=== PATIENT | female | born 1960 | race Caucasian/White ===

== ENCOUNTER 2017-04-23 20:40 | Emergency (ER) | payer OTHER ==
--- NOTE | 2017-04-24 01:46 | ED CLINICAL REPORT ---
Clinical Report - Physicians/Mid Levels Formerly [facility] [address] [place] [address] 04/23/2017 20:42 Patient: LEE DUVAL Time Seen: 21:04; initial patient contact. Arrived- By private vehicle. Historian- patient. HISTORY OF PRESENT ILLNESS Chief Complaint: BLOOD PRESSURE ELEVATED. Checked by patient and EMS at home and fire department. This started today and is still present but is improving. At its maximum, severity described as moderate. When seen in the E.D., severity described as mild. Modifying factors. Not worsened by anything. Not relieved by anything. No headache, visual disturbance or fatigue. Similar symptoms previously: None. Recent medical care: Not recently seen/assessed. REVIEW OF SYSTEMS No difficulty breathing, chest pain, abdominal pain, nausea or vomiting. No difficulty with urination, headache, blackouts or double vision. She has had dizziness (Now gone). All systems otherwise negative, except as recorded above. PAST HISTORY Hypertension. Dementia. SURGERIES: Cholecystectomy. . Medications: Premarin Oral. Triamterene-HCTZ Oral. Namenda Oral. Wellbutrin Oral. SEROquel Oral. Allergies: None. SOCIAL HISTORY Never smoker. Occasional alcohol use. No drug use. ADDITIONAL NOTES The nursing notes have been reviewed. PHYSICAL EXAM Vital Signs: 04/23/2017 21:02 BP: 171/111. HR: 106. RR: 16. O2 saturation: 100%. Temp: 98.5 F. Pain level now: 0/10. Have been reviewed. Hypertensive. Tachycardic. Respiratory rate normal. Temperature normal. Oxygen saturation normal. Appearance: Alert. No acute distress. Eyes: Eyes normal inspection. ENT: Pharynx normal. Neck: Neck supple. No JVD. CVS: Normal heart rate and rhythm. Heart sounds normal. Respiratory: No respiratory distress. Breath sounds normal. Abdomen: No visible injury. Soft and nontender. Bowel sounds normal. Skin: Skin warm and dry. Normal skin color. No rash. Extremities: No calf tenderness. No lower extremity edema. Neuro: Oriented X 3. No motor deficit. LABS, X-RAYS, AND EKG Laboratory Tests: UA-Culture if indicated: (XAVIER: 04/23/2017 21:55) ( Mscvd 04/23/2017 22:26) Final results Test Result Flag Units (Reference) URINE COLOR STRAW URINE APPEARANCE CLEAR URINE GLUCOSE NEGATIVE (NEGATIVE) URINE BILIRUBIN NEGATIVE (NEGATIVE) URINE KETONE NEGATIVE (NEGATIVE) URINE SPECIFIC GRAVITY 1.010 (1.010-1.030) URINE PH 7.5 (5.0-8.0) URINE PROTEIN NEGATIVE (NEGATIVE) URINE UROBILINOGEN 0.2 EU/dL (0.2-1.0) URINE NITRITE NEGATIVE (NEGATIVE) URINE BLOOD NEGATIVE (NEGATIVE) URINE LEUK ESTERASE NEGATIVE (NEGATIVE) URINE RBC NONE SEEN rbc/hpf (0-1) URINE WBC RARE wbc/hpf (0-1) URINE EPITHELIAL CELLS 0-1 EPI/hpf (0-5) URINE BACTERIA NONE SEEN (NONE SEEN) URINE COMMENT CULT NOT INDICATED URINE CULTURES ARE SET-UP BASED ON THE FOLLOWING CRITERIA:POSITIVE NITRITEPOSITIVE LEUKOCYTE ESTERASEGREATER THAN 10 WHITE BLOOD CELLSMODERATE (2+) OR GREATER BACTERIA CBC w Diff: (XAVIER: 04/23/2017 21:20) ( Mscvd 04/23/2017 22:00) Final results Test Result Flag Units (Reference) WHITE BLOOD COUNT 8.2 K/uL (4.5-11.5) RED BLOOD COUNT 4.88 M/uL (4.00-5.20) HEMOGLOBIN 15.3 gm/dL (12.0-16.0) HEMATOCRIT 45.4 % (36.0-46.0) MEAN CELL VOLUME 93 fL (80-100) MEAN CORPUSCULAR HGB 31 pg (26-34) MEAN CORPUSCULAR HGB CONC 34 g/dL (31-37) RED CELL DISTRIBUTION WIDTH 13.5 % (11.6-14.8) PLATELET COUNT 247 K/uL (150-400) NEUTROPHIL % 65.3 % (50-75) LYMPH % 25.3 % (25-40) MONO % 8.0 % (3-14) EOSINOPHIL % 0.7 % (0-4) BASOPHIL % 0.7 % (0-2) CMP: (XAVIER: 04/23/2017 21:20) ( MsgRcvd 04/23/2017 22:03) Final results Test Result Flag Units (Reference) GLUCOSE 115 H mg/dL (70-110) BUN 18 mg/dL (7-18) CREATININE 1.1 mg/dL (0.6-1.3) Estimated GFR 54.03 mL/min Estimated GFR- >60 mL/min Note: Persistent reduction over 3 months in eGFR<60 mL/min/1.73 m2 defines CKD. Patients with eGFR values>=60 mL/min/1.73 m2 may also have CKD if evidence ofpersistent proteinuria. Additional information may be foundat www.kidney.org. SODIUM 142 mmol/L (136-145) POTASSIUM 3.4 L mmol/L (3.5-5.1) CHLORIDE 103 mmol/L (98-107) CARBON DIOXIDE 26 mmol/L (21-32) CALCIUM 9.2 mg/dL (8.5-10.1) TOTAL PROTEIN 7.6 g/dL (6.4-8.2) ALBUMIN 3.9 g/dL (3.3-5.0) BILIRUBIN, TOTAL 0.4 mg/dL (0.0-1.0) ALKALINE PHOSPHATASE 99 U/L (46-116) AST (SGOT) 23 U/L (15-37) ALT (SGPT) 42 U/L (12-78) . PROGRESS AND PROCEDURES Disposition: Discharged home in good and improved condition. Condition: good. CLINICAL IMPRESSION Essential hypertension. INSTRUCTIONS Your Current Medications: STOP TAKING THE FOLLOWING MEDICATIONS: SEROquel Oral. CONTINUE TAKING THE FOLLOWING MEDICATIONS: Namenda Oral. Premarin Oral. Triamterene-HCTZ Oral. Wellbutrin Oral. Prescription Medications: Amlodipine 5 mg: take 1 orally every 24 hours. Dispense fifteen (15). No refills. Vistaril 50 mg: take 1 orally every 6 hours as needed for anxiety. Dispense thirty (30). No refill. Substitution is permissible. (Or PRN insomnia) Follow-up: Follow up with your doctor in about two days. Call for an appointment. Blood pressure screening was not performed during this visit because the patient has an active diagnosis of hypertension. (Electronically signed by Micheal Gonzalez Dr. 04/24/2017 8:08)
--- NOTE | 2017-04-24 01:46 | ED ORDER SUMMARY ---
..... Patient: LEE DUVAL OrderSheet [facility] VisitID: [id number] [place] [address] 57y, F Registration Date/Time: 04/23/2017 ORDER SHEET Weight: 79.3 kg (stated) Allergies: None GENERAL ORDERS: CBC w Diff Urgent (21:40 04/23/2017 Michela Miles) (21:44 KKnebel R.N.) CMP Urgent (21:40 04/23/2017 Michela Miles) (21:44 KKnebel R.N.) UA-Culture if indicated Urgent (21:40 04/23/2017 Michela Miles) (Ack 21:54 Lara) (22:03 KKnebel R.N.) MEDICATION ORDERS: Amlodipine PO 5 mg (NOW) (00:04 04/24/2017 Michela Miles) (Ack 0:19 KIMBERLEEanders R.N.) (0:38 KIMBERLEEanders R.N.) Vistaril PO 50 mg (NOW) (01:48 04/24/2017 Michela Miles) (Ack 1:53 JSanders R.N.) (1:59 JSanders R.N.) IV FLUIDS: IV Saline Lock (21:40 04/23/2017 Michela Miles) (21:44 KKnebel R.N.) IV NS : initial bolus none -, then 1000 mL/hr for X1 (NOW) (22:32 04/23/2017 Michela Miles) (22:49 KKnebel R.N.) ORDER SHEET NOTES: [Electronically signed by Alison Tran R.N. (05:55 04/24/2017)] [Electronically signed by Micheal Gonzalez Dr. (08:08 04/24/2017)] [Electronically locked/signed by Alison Tran R.N. (05:55 04/24/2017)]
--- NOTE | 2017-04-24 01:46 | ED ORDER SUMMARY ---
..... Patient: LEE DUVAL OrderSheet [facility] VisitID: [id number] [place] [address] 57y, F Registration Date/Time: 04/23/2017 ORDER SHEET Weight: 79.3 kg (stated) Allergies: None GENERAL ORDERS: CBC w Diff Urgent (21:40 04/23/2017 Michela Miles) (21:44 KKnebel R.N.) CMP Urgent (21:40 04/23/2017 Michela Miles) (21:44 KKnebel R.N.) UA-Culture if indicated Urgent (21:40 04/23/2017 Michela Miles) (Ack 21:54 Lara) (22:03 KKnebel R.N.) MEDICATION ORDERS: Amlodipine PO 5 mg (NOW) (00:04 04/24/2017 Michela Miles) (Ack 0:19 KIMBERLEEanders R.N.) (0:38 KIMBERLEEanders R.N.) Vistaril PO 50 mg (NOW) (01:48 04/24/2017 Michela Miles) (Ack 1:53 JSanders R.N.) (1:59 JSanders R.N.) IV FLUIDS: IV Saline Lock (21:40 04/23/2017 Michela Miles) (21:44 KKnebel R.N.) IV NS : initial bolus none -, then 1000 mL/hr for X1 (NOW) (22:32 04/23/2017 Michela Miles) (22:49 KKnebel R.N.) ORDER SHEET NOTES: [Electronically signed by Alison Tran R.N. (05:55 04/24/2017)] [Electronically signed by Micheal Gonzalez Dr. (08:08 04/24/2017)] [Electronically locked/signed by Alison Tran R.N. (05:55 04/24/2017)]
--- NOTE | 2017-04-24 01:46 | ED NURSING NOTES ---
Clinical Report - Nurses [facility] [address] [place] [address] 04/23/2017 20:42 Patient: LEE DUVAL TRIAGE Triage time 21:Apr 23 2017. Acuity: LEVEL 3. Chief Complaint: (hypertension). Alert. No acute distress. KATHY COMA SCORE: Kathy Coma Scale: 14- eyes open spontaneously (4); best verbal response- disoriented (4); best motor response- obeys commands (6). --21:11 Kalani La R.N. 21:02 04/23/17. BP: 171/111. HR: 106. RR: 16. O2 saturation: 100%. Temp: 98.5 F. Pain level now: 0/10. --21:11 Kalani La R.N. Weight: 79.3 kg stated. Height/Length: 61 inches Per Patient. BMI: 33. --21:09 Kalani La R.N. Medications SEROquel Oral. --21:03 Kalani La R.N. Wellbutrin Oral. --21:04 Kalani La R.N. Namenda Oral. --21:04 Kalani La R.N. Triamterene-HCTZ Oral. --21:05 Kalani La R.N. Premarin Oral. --21:07 Kalani La R.N. Allergies None. --21:05 Kalani La R.N. History Arrived by private vehicle. Historian: family. Accompanied by family and spouse. This started today. ( dizzy). Treatment DIRECTOR OF ARCHITECTURE: None. PAST MEDICAL HX: Immunizations: up-to-date. The patient is post-menopausal. Denies current . SOCIAL HX: Never smoker. Occasional alcohol use. No drug use. No infectious disease exposure. SELF HARM ASSESSMENT: A self harm assessment was performed. The patient answered "no" to the question "Do you have thoughts of harming or killing yourself?". FALL RISK ASSESSMENT: Fall risk assessment completed. No fall risk identified. NUTRITIONAL RISK ASSESSMENT: The nutritional risk assessment revealed no deficiencies. FUNCTIONAL ASSESSMENT: Functional assessment: no impairments noted. LEARNING NEEDS ASSESSMENT: The learning needs assessment revealed no barriers. ABUSE ASSESSMENT: Abuse assessment: The patient was asked "Do you feel safe in your home?". SKIN INTEGRITY ASSESSMENT: Skin integrity risk assessment completed. No skin integrity risk identified. --21:11 Kalani La R.N. PROBLEMS: Hypertension. Dementia. --21:06 Kalani La R.N. ADDITIONAL SURGERIES: Cholecystectomy. . --21:06 Kalani La R.N. Interventions ID band on patient. To room. --21:11 Kalani La R.N. PHYSICAL ASSESSMENT GENERAL / NEURO / PSYCH: Alert. Appears in no acute distress. The patient is disoriented to place and time. HEENT: No facial asymmetry noted. RESPIRATORY: Respirations not labored. CVS: Capillary refill less than 2 seconds. GI / : Abdomen soft and nontender. SKIN: Skin is warm and dry. --21:11 Kalani La R.N. NURSING PROGRESS NOTES Pulse oximeter and NIBP monitor placed on patient. Call light placed in reach. Side rails up x 2. Bed placed in lowest position. Brakes of bed on. Brakes of chair on. --21:12 Kalani La R.N. 21:24 04/23/2017 Site #1 started via IV in the right hand with an 20g angiocath, with aseptic technique and good blood return; one attempt. Blood drawn: rainbow set. Labeled in the presence of the patient and sent to the lab. Saline lock flushed with 10 mL saline. --21:24 Kalani La R.N. Patient ID band checked for patient name and birthdate: patient confirmed. Instructions provided to collect clean catch urine. Clean catch urine collected with return of yellow-colored clear urine; sample sent to lab for urinalysis and culture. Specimen labeled in the presence of the patient. --22:02 Kalani La R.N. 22:44 04/23/2017 Started bag #1 1000 mL IV Fluids IV NS (Saline); bolus of 1000 mL over 1 hour(s) via site #1 via IV pump. Allergies verified and confirmed 5 rights. IV patency established. IV site checked: no pain, redness, or swelling. IV flushed thoroughly pre- and post-medication administration. --22:49 Kalani La R.N. The patient is calm and resting quietly. Overall patient status is the same- she states feels better. RESPIRATORY: No respiratory distress. SKIN: Skin is warm and dry. Skin color within normal limits. --23:37 Kalani La R.N. 23:36 04/23/17. BP: 162/98. HR: 114. O2 saturation: 98%. --23:37 Kalani La R.N. Care transferred and report received (YESENIA Uriarte). --23:41 Alison Tran R.N. 23:45 04/23/2017 IV Fluids IV NS Discontinued: bag #1 completed. Total amount infused: 1000 mL. IV patency established. IV site checked: no pain, redness, or swelling. IV flushed thoroughly. --23:45 Alison Tran R.N. 23:46 04/23/17. ( Patient resting, inquiring when she can go home, told her the doctor should be DC her soon. She and states understanding). --23:46 Alison Tran R.N. 23:53 04/23/17. ( Patient up to restroom. Ambulating fine, no dizziness.). --23:53 Alison Tran R.N. 23:58 04/23/17. ( Patient back in room.). --23:58 Alison Tran R.N. 00:29 04/24/17. ( Francis does not have Norvasc or Amlodipine so nursing supp will retrieve.). --00:29 Alison Tran R.N. 00:36 04/24/17. BP: 151/96 (regular adult cuff) taken on the left arm. HR: 93. RR: 16. O2 saturation: 100%. Pain level now: 0/10. --00:37 Alison Tran R.N. 00:38 04/24/2017 Amlodipine PO Tablets 5 mg given. Allergies verified and confirmed 5 rights. --00:38 Alison Tran R.N. 01:06 04/24/17. BP: 152/93 (regular adult cuff) taken on the left arm, while sitting. HR: 95. RR: 16. O2 saturation: 100% on room air. --01:08 Michelle Villaseñor 01:59 04/24/2017 Vistaril (HydrOXYzine Pamoate) PO Capsules 50 mg given. Allergies verified, confirmed 5 rights and sedative warning given to the patient. --01:59 Alison Tran R.N. 01:59 04/24/17. BP: 159/102 (large adult cuff) taken on the right arm, while sitting. HR: 92. RR: 18. O2 saturation: 100%. Pain level now: 0/10. --02:05 Alison Tran R.N. DISPOSITION / DISCHARGE 02:04/24/2017 Site #1 removed upon discharge. Bandaid applied. --02:27 Alison Tran R.N. late entry - 02:20 04/24/17. 02:27 04/24/17. Departure time: 02:Apr 24 2017. Condition at departure: unchanged. No learning barriers present. Discharge instructions provided and reviewed with the spouse. Reviewed medication(s) side effects, precautions, dosing and course information. Prescription(s) given to the patient. Spouse verbalized understanding. Written instructions provided in Arabic. The patient was discharged by the physician. She was discharged home and accompanied by spouse. She left the Emergency Department ambulatory and via private vehicle. Spouse driving. --02:27 Alison Tran R.N. 02:04/24/17. BP: 159/102 (large adult cuff) taken on the right arm. HR: 92. RR: 16. O2 saturation: 100% on room air. Temp: 98.4 F (oral). Pain level now: 0/10. Additional comments: physician notified of DC vitals, ok per Dr Gonzalez. --02:27 Tran, Alison, R.N. Locked/Released at 04/24/2017 5:55 by Alison Tran R.N.
--- NOTE | 2017-04-24 08:09 | ED DISCHARGE INSTRUCTIONS ---
Patient: LEE DUVAL General Instructions [facility] VisitID: [id number] [place] [address] 57y, F Registration Date/Time: 04/23/2017 Essential hypertension. INSTRUCTIONS Your Current Medications: STOP TAKING THE FOLLOWING MEDICATIONS: SEROquel Oral. CONTINUE TAKING THE FOLLOWING MEDICATIONS: Namenda Oral. Premarin Oral. Triamterene-HCTZ Oral. Wellbutrin Oral. Prescription Medications: Amlodipine 5 mg: take 1 orally every 24 hours. Dispense fifteen (15). No refills. Vistaril 50 mg: take 1 orally every 6 hours as needed for anxiety. Dispense thirty (30). No refill. Substitution is permissible. (Or PRN insomnia) Follow-up: Follow up with your doctor in about two days. Call for an appointment. Blood pressure screening was not performed during this visit because the patient has an active diagnosis of hypertension. ADDITIONAL INFORMATION Hypertension, Out Of Control (Established) Your blood pressure was unusually high today. This can occur as a result of missing doses of your blood pressure medicine. Some asthma inhalers, decongestants, diet pills, and street drugs such as cocaine and amphetamine can worsen hypertension. An increase in body weight, increase in salt intake, smoking, and caffeine are other causes. Emotional upset or acute pain can cause a sudden rapid rise in blood pressure which may return to normal after a period of rest. A normal blood pressure is less than 140/90. The first (top) number is the systolic pressure. The second (bottom) number is the diastolic pressure. Hypertension exists when either the top number is 140 or higher, OR the bottom number is 90 or higher on repeated measurements. Home Care: All patients with high blood pressure should do the following to lower their pressure. If you are on blood pressure medicines, then these methods may reduce or eliminate your need for medicines in the future. Begin a weight-loss program if you are overweight. Reduce your salt intake. Avoid high-salt foods (olives, pickles, smoked meats, salted potato chips, etc.). Do not add salt to your food at the table. Use only small amounts of salt when cooking. Begin an exercise program. Discuss with your doctor what type of exercise program would be best for you. It doesnt have to be difficult. Even brisk walking for 20 minutes3 times a week is a good form of exercise. Avoid medicines which contain heart stimulants. This includes many cold and sinus decongestant pills and sprays as well as diet pills. Check the warnings about hypertension on the label. Stimulants such as amphetamine or cocaine could be lethal for someone with hypertension. Never take these. Limit your caffeine intake or switch to decaf. Stop smoking. If you are a long-time smoker, this can be hard. Enroll in a stop-smoking program to improve your chance of success. Talk to your physician about ways to improve your chance of success. Learning how to handle stress better is an important part of any program to lower blood pressure. Learn about relaxation methods such as meditation, yoga, or biofeedback. If medicines were prescribed, take them exactly as directed. Missing doses may cause your blood pressure to get out of control. Consider buying an automatic blood pressure machine (available at many pharmacies). Use this to monitor your blood pressure and report to your doctor. Follow Up: Regular visits to your own doctor for blood pressure checks and medicine adjustment is an important part of your care. Make a follow-up appointment as directed by our staff. Get Prompt Medical Attention if any of the following occur: Chest, arm, shoulder, neck, or upper back pain Shortness of breath Severe headache Throbbing or rushing sound in the ears Nosebleed Extreme drowsiness, confusion, or fainting Dizziness or vertigo (dizziness with spinning sensation) Weakness of an arm or leg or one side of the face Difficulty with speech or vision Amlodipine Besylate Oral tablet What is this medicine? AMLODIPINE (am HECTOR cullen) is a calcium-channel augustin. It affects the amount of calcium found in your heart and muscle cells. This relaxes your blood vessels, which can reduce the amount of work the heart has to do. This medicine is used to lower high blood pressure. It is also used to prevent chest pain. How should I use this medicine? Take this medicine by mouth with a glass of water. Follow the directions on the prescription label. Take your medicine at regular intervals. Do not take more medicine than directed. Talk to your ultrasound technologist sonographer regarding the use of this medicine in children. Special care may be needed. This medicine has been used in children as young as 6. Persons over 65 years old may have a stronger reaction to this medicine and need smaller doses. What side effects may I notice from receiving this medicine? Side effects that you should report to your doctor or health childcare teacher as soon as possible: allergic reactions like skin rash, itching or hives, swelling of the face, lips, or tongue breathing problems changes in vision or hearing chest pain fast, irregular heartbeat swelling of legs or ankles Side effects that usually do not require medical attention (report to your doctor or health childcare teacher if they continue or are bothersome): dry mouth facial flushing nausea, vomiting stomach gas, pain tired, weak trouble sleeping What may interact with this medicine? herbal or dietary supplements local or general anesthetics medicines for high blood pressure medicines for prostate problems rifampin What if I miss a dose? If you miss a dose, take it as soon as you can. If it is almost time for your next dose, take only that dose. Do not take double or extra doses. Where should I keep my medicine? Keep out of the reach of children. Store at room temperature between 59 and 86 degrees F (15 and 30 degrees C). Protect from light. Keep container tightly closed. Throw away any unused medicine after the expiration date. What should I tell my health care provider before I take this medicine? They need to know if you have any of these conditions: heart problems like heart failure or aortic stenosis liver disease an unusual or allergic reaction to amlodipine, other medicines, foods, dyes, or preservatives or trying to get breast-feeding What should I watch for while using this medicine? Visit your doctor or health childcare teacher for regular check ups. Check your blood pressure and pulse rate regularly. Ask your health childcare teacher what your blood pressure and pulse rate should be, and when you should contact him or her. This medicine may make you feel confused, dizzy or lightheaded. Do not drive, use machinery, or do anything that needs mental alertness until you know how this medicine affects you. To reduce the risk of dizzy or fainting spells, do not sit or stand up quickly, especially if you are an older patient. Avoid alcoholic drinks; they can make you more dizzy. Do not suddenly stop taking amlodipine. Ask your doctor or health childcare teacher how you can gradually reduce the dose. Hydroxyzine Pamoate Oral capsule What is this medicine? HYDROXYZINE (janusz DROX i zeen) is an antihistamine. This medicine is used to treat allergy symptoms. It is also used to treat anxiety and tension. This medicine can be used with other medicines to induce sleep before surgery. How should I use this medicine? Take this medicine by mouth with a full glass of water. Follow the directions on the prescription label. You may take this medicine with food or on an empty stomach. Take your medicine at regular intervals. Do not take your medicine more often than directed. Talk to your ultrasound technologist sonographer regarding the use of this medicine in children. Special care may be needed. While this drug may be prescribed for children as young as 6 years of age for selected conditions, precautions do apply. Patients over 65 years old may have a stronger reaction and need a smaller dose. What side effects may I notice from receiving this medicine? Side effects that you should report to your doctor or health childcare teacher as soon as possible: fast or irregular heartbeat difficulty passing urine seizures slurred speech or confusion tremor Side effects that usually do not require medical attention (report to your doctor or health childcare teacher if they continue or are bothersome): constipation drowsiness fatigue headache stomach upset What may interact with this medicine? alcohol barbiturate medicines for sleep or seizures medicines for colds, allergies medicines for depression, anxiety, or emotional disturbances medicines for pain medicines for sleep muscle relaxants What if I miss a dose? If you miss a dose, take it as soon as you can. If it is almost time for your next dose, take only that dose. Do not take double or extra doses. Where should I keep my medicine? Keep out of the reach of children. Store at room temperature between 15 and 30 degrees C (59 and 86 degrees F). Keep container tightly closed. Throw away any unused medicine after the expiration date. What should I tell my health care provider before I take this medicine? They need to know if you have any of these conditions: any chronic illness difficulty passing urine glaucoma heart disease kidney disease liver disease lung disease an unusual or allergic reaction to hydroxyzine, cetirizine, other medicines, foods, dyes, or preservatives or trying to get breast-feeding What should I watch for while using this medicine? Tell your doctor or health childcare teacher if your symptoms do not improve. You may get drowsy or dizzy. Do not drive, use machinery, or do anything that needs mental alertness until you know how this medicine affects you. Do not stand or sit up quickly, especially if you are an older patient. This reduces the risk of dizzy or fainting spells. Alcohol may interfere with the effect of this medicine. Avoid alcoholic drinks. Your mouth may get dry. Chewing sugarless gum or sucking hard candy, and drinking plenty of water may help. Contact your doctor if the problem does not go away or is severe. This medicine may cause dry eyes and blurred vision. If you wear contact lenses you may feel some discomfort. Lubricating drops may help. See your eye doctor if the problem does not go away or is severe. If you are receiving skin tests for allergies, tell your doctor you are using this medicine. You have been given the following additional information: Hypertension, Established, Out Of Control Amlodipine Besylate Oral tablet Hydroxyzine Pamoate Oral capsule (Electronically signed by Micheal Gonzalez Dr. 04/24/2017 8:08)
--- NOTE | 2017-04-24 08:09 | ED MAR SUMMARY ---
..... Medication Administration Record [facility] [address] [place] [address] Patient: LEE DUVAL Visit ID: [id number] 57y, F Weight: 79.3 kg Height/Length: 61 in BMI: 33 ALLERGIES: None Start 22:44 04/23/2017 Kalani La R.N., Stop 23:45 04/23/2017 Alison Tran R.N. Medication Administered: IV NS (SALINE), Dose: IV Fluids, Bolus: 1000 mL over 1 hour(s), Dispensed: 1000 mL bag, Site: #1 right hand. Medication Ordered: IV NS : initial bolus none -, then 1000 mL/hr for X1 (NOW). Given 00:38 04/24/2017 Alison Tran R.N. Medication Administered: AMLODIPINE [PO], Dose: 5 mg Tablets PO. Medication Ordered: Amlodipine PO 5 mg (NOW). Given 01:59 04/24/2017 Alison Tran R.N. Medication Administered: VISTARIL [PO] (HYDROXYZINE PAMOATE), Dose: 50 mg Capsules PO. Medication Ordered: Vistaril PO 50 mg (NOW).
--- NOTE | 2017-04-24 08:09 | ED DISCHARGE INSTRUCTIONS ---
Patient: LEE DUVAL General Instructions [facility] VisitID: [id number] [place] [address] 57y, F Registration Date/Time: 04/23/2017 Essential hypertension. INSTRUCTIONS Your Current Medications: STOP TAKING THE FOLLOWING MEDICATIONS: SEROquel Oral. CONTINUE TAKING THE FOLLOWING MEDICATIONS: Namenda Oral. Premarin Oral. Triamterene-HCTZ Oral. Wellbutrin Oral. Prescription Medications: Amlodipine 5 mg: take 1 orally every 24 hours. Dispense fifteen (15). No refills. Vistaril 50 mg: take 1 orally every 6 hours as needed for anxiety. Dispense thirty (30). No refill. Substitution is permissible. (Or PRN insomnia) Follow-up: Follow up with your doctor in about two days. Call for an appointment. Blood pressure screening was not performed during this visit because the patient has an active diagnosis of hypertension. ADDITIONAL INFORMATION Hypertension, Out Of Control (Established) Your blood pressure was unusually high today. This can occur as a result of missing doses of your blood pressure medicine. Some asthma inhalers, decongestants, diet pills, and street drugs such as cocaine and amphetamine can worsen hypertension. An increase in body weight, increase in salt intake, smoking, and caffeine are other causes. Emotional upset or acute pain can cause a sudden rapid rise in blood pressure which may return to normal after a period of rest. A normal blood pressure is less than 140/90. The first (top) number is the systolic pressure. The second (bottom) number is the diastolic pressure. Hypertension exists when either the top number is 140 or higher, OR the bottom number is 90 or higher on repeated measurements. Home Care: All patients with high blood pressure should do the following to lower their pressure. If you are on blood pressure medicines, then these methods may reduce or eliminate your need for medicines in the future. Begin a weight-loss program if you are overweight. Reduce your salt intake. Avoid high-salt foods (olives, pickles, smoked meats, salted potato chips, etc.). Do not add salt to your food at the table. Use only small amounts of salt when cooking. Begin an exercise program. Discuss with your doctor what type of exercise program would be best for you. It doesnt have to be difficult. Even brisk walking for 20 minutes3 times a week is a good form of exercise. Avoid medicines which contain heart stimulants. This includes many cold and sinus decongestant pills and sprays as well as diet pills. Check the warnings about hypertension on the label. Stimulants such as amphetamine or cocaine could be lethal for someone with hypertension. Never take these. Limit your caffeine intake or switch to decaf. Stop smoking. If you are a long-time smoker, this can be hard. Enroll in a stop-smoking program to improve your chance of success. Talk to your physician about ways to improve your chance of success. Learning how to handle stress better is an important part of any program to lower blood pressure. Learn about relaxation methods such as meditation, yoga, or biofeedback. If medicines were prescribed, take them exactly as directed. Missing doses may cause your blood pressure to get out of control. Consider buying an automatic blood pressure machine (available at many pharmacies). Use this to monitor your blood pressure and report to your doctor. Follow Up: Regular visits to your own doctor for blood pressure checks and medicine adjustment is an important part of your care. Make a follow-up appointment as directed by our staff. Get Prompt Medical Attention if any of the following occur: Chest, arm, shoulder, neck, or upper back pain Shortness of breath Severe headache Throbbing or rushing sound in the ears Nosebleed Extreme drowsiness, confusion, or fainting Dizziness or vertigo (dizziness with spinning sensation) Weakness of an arm or leg or one side of the face Difficulty with speech or vision Amlodipine Besylate Oral tablet What is this medicine? AMLODIPINE (am HECTOR cullen) is a calcium-channel augustin. It affects the amount of calcium found in your heart and muscle cells. This relaxes your blood vessels, which can reduce the amount of work the heart has to do. This medicine is used to lower high blood pressure. It is also used to prevent chest pain. How should I use this medicine? Take this medicine by mouth with a glass of water. Follow the directions on the prescription label. Take your medicine at regular intervals. Do not take more medicine than directed. Talk to your corrections cadet regarding the use of this medicine in children. Special care may be needed. This medicine has been used in children as young as 6. Persons over 65 years old may have a stronger reaction to this medicine and need smaller doses. What side effects may I notice from receiving this medicine? Side effects that you should report to your doctor or health direct care professional as soon as possible: allergic reactions like skin rash, itching or hives, swelling of the face, lips, or tongue breathing problems changes in vision or hearing chest pain fast, irregular heartbeat swelling of legs or ankles Side effects that usually do not require medical attention (report to your doctor or health direct care professional if they continue or are bothersome): dry mouth facial flushing nausea, vomiting stomach gas, pain tired, weak trouble sleeping What may interact with this medicine? herbal or dietary supplements local or general anesthetics medicines for high blood pressure medicines for prostate problems rifampin What if I miss a dose? If you miss a dose, take it as soon as you can. If it is almost time for your next dose, take only that dose. Do not take double or extra doses. Where should I keep my medicine? Keep out of the reach of children. Store at room temperature between 59 and 86 degrees F (15 and 30 degrees C). Protect from light. Keep container tightly closed. Throw away any unused medicine after the expiration date. What should I tell my health care provider before I take this medicine? They need to know if you have any of these conditions: heart problems like heart failure or aortic stenosis liver disease an unusual or allergic reaction to amlodipine, other medicines, foods, dyes, or preservatives or trying to get breast-feeding What should I watch for while using this medicine? Visit your doctor or health direct care professional for regular check ups. Check your blood pressure and pulse rate regularly. Ask your health direct care professional what your blood pressure and pulse rate should be, and when you should contact him or her. This medicine may make you feel confused, dizzy or lightheaded. Do not drive, use machinery, or do anything that needs mental alertness until you know how this medicine affects you. To reduce the risk of dizzy or fainting spells, do not sit or stand up quickly, especially if you are an older patient. Avoid alcoholic drinks; they can make you more dizzy. Do not suddenly stop taking amlodipine. Ask your doctor or health direct care professional how you can gradually reduce the dose. Hydroxyzine Pamoate Oral capsule What is this medicine? HYDROXYZINE (janusz DROX i zeen) is an antihistamine. This medicine is used to treat allergy symptoms. It is also used to treat anxiety and tension. This medicine can be used with other medicines to induce sleep before surgery. How should I use this medicine? Take this medicine by mouth with a full glass of water. Follow the directions on the prescription label. You may take this medicine with food or on an empty stomach. Take your medicine at regular intervals. Do not take your medicine more often than directed. Talk to your corrections cadet regarding the use of this medicine in children. Special care may be needed. While this drug may be prescribed for children as young as 6 years of age for selected conditions, precautions do apply. Patients over 65 years old may have a stronger reaction and need a smaller dose. What side effects may I notice from receiving this medicine? Side effects that you should report to your doctor or health direct care professional as soon as possible: fast or irregular heartbeat difficulty passing urine seizures slurred speech or confusion tremor Side effects that usually do not require medical attention (report to your doctor or health direct care professional if they continue or are bothersome): constipation drowsiness fatigue headache stomach upset What may interact with this medicine? alcohol barbiturate medicines for sleep or seizures medicines for colds, allergies medicines for depression, anxiety, or emotional disturbances medicines for pain medicines for sleep muscle relaxants What if I miss a dose? If you miss a dose, take it as soon as you can. If it is almost time for your next dose, take only that dose. Do not take double or extra doses. Where should I keep my medicine? Keep out of the reach of children. Store at room temperature between 15 and 30 degrees C (59 and 86 degrees F). Keep container tightly closed. Throw away any unused medicine after the expiration date. What should I tell my health care provider before I take this medicine? They need to know if you have any of these conditions: any chronic illness difficulty passing urine glaucoma heart disease kidney disease liver disease lung disease an unusual or allergic reaction to hydroxyzine, cetirizine, other medicines, foods, dyes, or preservatives or trying to get breast-feeding What should I watch for while using this medicine? Tell your doctor or health direct care professional if your symptoms do not improve. You may get drowsy or dizzy. Do not drive, use machinery, or do anything that needs mental alertness until you know how this medicine affects you. Do not stand or sit up quickly, especially if you are an older patient. This reduces the risk of dizzy or fainting spells. Alcohol may interfere with the effect of this medicine. Avoid alcoholic drinks. Your mouth may get dry. Chewing sugarless gum or sucking hard candy, and drinking plenty of water may help. Contact your doctor if the problem does not go away or is severe. This medicine may cause dry eyes and blurred vision. If you wear contact lenses you may feel some discomfort. Lubricating drops may help. See your eye doctor if the problem does not go away or is severe. If you are receiving skin tests for allergies, tell your doctor you are using this medicine. You have been given the following additional information: Hypertension, Established, Out Of Control Amlodipine Besylate Oral tablet Hydroxyzine Pamoate Oral capsule (Electronically signed by Micheal Gonzalez Dr. 04/24/2017 8:08)
--- NOTE | 2017-04-24 08:09 | ED MED RECONCILIATION SUMMARY ---
Patient: LEE DUVAL Medication Reconciliation Report [facility] VisitID: [id number] [address] [place] [address] 57y, F Registration Date/Time: 04/23/2017 Weight: 79.3 kg Height/Length: 61 in. BMI: 33.0 ALLERGIES: None The patient's Home Medications are listed below: STOP TAKING THE FOLLOWING MEDICATIONS: SEROquel Oral CONTINUE TAKING THE FOLLOWING MEDICATIONS: Namenda Oral Premarin Oral Triamterene-HCTZ Oral Wellbutrin Oral The source(s) of the original Home Medication information: Not obtained. The following Medications were given to the patient in the Emergency Department: IV NS IV Fluids bolus 1000 mL over 1 hour(s), administered: 04/23/2017 10:44:00 PM Amlodipine [PO] PO 5 mg, administered: 04/24/2017 12:38:00 AM Vistaril [PO] PO 50 mg, administered: 04/24/2017 1:59:00 AM The following Medications were prescribed to the patient: Amlodipine 5 mg: take 1 orally every 24 hours. Dispense fifteen (15). No refills. -- Micheal Gonzalez Dr. Vistaril 50 mg: take 1 orally every 6 hours as needed for anxiety. Dispense thirty (30). No refill. Substitution is permissible.(Or PRN insomnia) -- Micheal Gonzalez Dr.
--- NOTE | 2017-04-24 08:09 | ED MED RECONCILIATION SUMMARY ---
Patient: LEE DUVAL Medication Reconciliation Report [facility] VisitID: [id number] [address] [place] [address] 57y, F Registration Date/Time: 04/23/2017 Weight: 79.3 kg Height/Length: 61 in. BMI: 33.0 ALLERGIES: None The patient's Home Medications are listed below: STOP TAKING THE FOLLOWING MEDICATIONS: SEROquel Oral CONTINUE TAKING THE FOLLOWING MEDICATIONS: Namenda Oral Premarin Oral Triamterene-HCTZ Oral Wellbutrin Oral The source(s) of the original Home Medication information: Not obtained. The following Medications were given to the patient in the Emergency Department: IV NS IV Fluids bolus 1000 mL over 1 hour(s), administered: 04/23/2017 10:44:00 PM Amlodipine [PO] PO 5 mg, administered: 04/24/2017 12:38:00 AM Vistaril [PO] PO 50 mg, administered: 04/24/2017 1:59:00 AM The following Medications were prescribed to the patient: Amlodipine 5 mg: take 1 orally every 24 hours. Dispense fifteen (15). No refills. -- Micheal Gonzalez Dr. Vistaril 50 mg: take 1 orally every 6 hours as needed for anxiety. Dispense thirty (30). No refill. Substitution is permissible.(Or PRN insomnia) -- Micheal Gonzalez Dr.
--- NOTE | 2017-04-24 08:09 | ED MAR SUMMARY ---
..... Medication Administration Record [facility] [address] [place] [address] Patient: LEE DUVAL Visit ID: [id number] 57y, F Weight: 79.3 kg Height/Length: 61 in BMI: 33 ALLERGIES: None Start 22:44 04/23/2017 Kalani La R.N., Stop 23:45 04/23/2017 Alison Tran R.N. Medication Administered: IV NS (SALINE), Dose: IV Fluids, Bolus: 1000 mL over 1 hour(s), Dispensed: 1000 mL bag, Site: #1 right hand. Medication Ordered: IV NS : initial bolus none -, then 1000 mL/hr for X1 (NOW). Given 00:38 04/24/2017 Alison Tran R.N. Medication Administered: AMLODIPINE [PO], Dose: 5 mg Tablets PO. Medication Ordered: Amlodipine PO 5 mg (NOW). Given 01:59 04/24/2017 Alison Tran R.N. Medication Administered: VISTARIL [PO] (HYDROXYZINE PAMOATE), Dose: 50 mg Capsules PO. Medication Ordered: Vistaril PO 50 mg (NOW).
== END 2017-04-24 02:25 | disposition home or self-care (01) ==
LOC: ED SRH 20:40
DX: I10 Essential (primary) hypertension (principal)
CPT/HCPCS: 90004; 90100; 95059

== ENCOUNTER 2017-04-26 07:45 | Emergency (ER) | payer OTHER ==
--- NOTE | 2017-04-26 08:49 | DIAGNOSTIC IMAGING REPORT ---
PROCEDURE: XR CHEST 1 VIEW INDICATION: CHEST PAIN TECHNIQUE: Portable AP view 08:33 a.m. COMPARISON: None. FINDINGS: Lungs are clear. Heart and mediastinum are normal. Thorax is normal. IMPRESSION: 1. Negative chest.
--- NOTE | 2017-04-26 09:15 | ED CLINICAL REPORT ---
Clinical Report - Physicians/Mid Levels [facility] [address] [place] [address] 04/26/2017 7:50 Patient: LEE DUVAL Time Seen: 07:55. Arrived- By private vehicle. Historian- patient. HISTORY OF PRESENT ILLNESS Chief Complaint: CHEST DISCOMFORT. This started about 1 hour ago and is now gone. Onset during light activity. At its maximum, severity described as moderate. When seen in the E.D., it was gone. Modifying factors. Not worsened by anything. Not relieved by anything. It is described as Pt could not articulate exactly what she was feeling, secondary to dementia. states she looked uncomfortable, and put her hand on her chest. Episode lasted a few minutes. and it is described as located in the central chest area. No nausea, vomiting, difficulty breathing or diaphoresis. Similar symptoms previously: None. Recent medical care: Not recently seen/assessed. REVIEW OF SYSTEMS No fever, chills, cough, pedal edema or calf pain. No fainting episodes, headache, sore throat, blurred vision or abdominal pain. No black stools, difficulty with urination, skin rash, enlarged lymph nodes or joint pain. No bloody stools. All systems otherwise negative, except as recorded above. PAST HISTORY Problems: Murmur. Hypertension. Dementia. Additional Surgeries: Cholecystectomy. . Medications: BuPROPion HCl Oral 150 mg, daily. Memantine HCl Oral (Tablet 10 mg) 1 tablet, 2x daily. AmLODIPine Besylate Oral 5 mg, daily. HydrOXYzine HCl Oral 50 mg, 4x a day as needed. Tamsulosin HCl Oral (Capsule 0.4 mg) 1 capsule, daily. Namenda Oral. Premarin Oral. SEROquel Oral. Triamterene-HCTZ Oral (Tablet 37.5-25 mg) 1 tablet, daily. Wellbutrin Oral. Allergies: None. SOCIAL HISTORY Never smoker. No alcohol use or drug use. ADDITIONAL NOTES The nursing notes have been reviewed. PHYSICAL EXAM Vital Signs: 04/26/2017 07:55 BP: 178/103. HR: 119. RR: 16. O2 saturation: 97%. Temp: 99.5 F. Pain level now: 0/10. Have been reviewed. Appearance: Alert. No acute distress. Eyes: Pupils equal, round and reactive to light. Eyes normal inspection. ENT: Nose normal. Neck: Normal inspection. CVS: Normal heart rate and rhythm. Heart sounds normal. Pulses normal. Respiratory: No respiratory distress. Breath sounds normal. Chest nontender. Abdomen: Soft and nontender. Back: Normal external inspection. Skin: Skin warm and dry. Normal skin color. No rash. Normal skin turgor. Extremities: Extremities exhibit normal ROM. No lower extremity edema. Neuro: (PT is alert and can answer simple questions, but mostly states, "I don't know."). LABS, X-RAYS, AND EKG Chest X-ray: No acute disease. Normal lung markings present. Normal heart size. Mediastinum normal. Great vessels normal. Soft tissues normal. No infiltrate. No fracture. No bony lesion present. Views: AP (portable). Technique: good. The X-rays were independently viewed by me, interpreted by the radiologist and contemporaneously by me and discussed with the radiologist. Prior films were not available for comparison. Laboratory Tests: CBC w Diff: (XAVIER: 04/26/2017 08:04) ( MsgRcvd 04/26/2017 08:28) Final results Test Result Flag Units (Reference) WHITE BLOOD COUNT 5.7 K/uL (4.5-11.5) RED BLOOD COUNT 4.81 M/uL (4.00-5.20) HEMOGLOBIN 15.2 gm/dL (12.0-16.0) HEMATOCRIT 44.9 % (36.0-46.0) MEAN CELL VOLUME 93 fL (80-100) MEAN CORPUSCULAR HGB 32 pg (26-34) MEAN CORPUSCULAR HGB CONC 34 g/dL (31-37) RED CELL DISTRIBUTION WIDTH 13.3 % (11.6-14.8) PLATELET COUNT 208 K/uL (150-400) NEUTROPHIL % 55.1 % (50-75) LYMPH % 33.3 % (25-40) MONO % 8.8 % (3-14) EOSINOPHIL % 2.1 % (0-4) BASOPHIL % 0.7 % (0-2) CHEM 13 PANEL: (XAVIER: 04/26/2017 08:04) ( MsgRcvd 04/26/2017 08:45) Final results Test Result Flag Units (Reference) GLUCOSE 144 H mg/dL (70-110) BUN 13 mg/dL (7-18) CREATININE 1.2 mg/dL (0.6-1.3) Estimated GFR 48.87 mL/min Estimated GFR- 59.23 mL/min Note: Persistent reduction over 3 months in eGFR<60 mL/min/1.73 m2 defines CKD. Patients with eGFR values>=60 mL/min/1.73 m2 may also have CKD if evidence ofpersistent proteinuria. Additional information may be foundat www.kidney.org. SODIUM 140 mmol/L (136-145) POTASSIUM 3.0 L mmol/L (3.5-5.1) CHLORIDE 101 mmol/L (98-107) CARBON DIOXIDE 27 mmol/L (21-32) CALCIUM 9.1 mg/dL (8.5-10.1) TOTAL PROTEIN 7.4 g/dL (6.4-8.2) ALBUMIN 3.9 g/dL (3.3-5.0) BILIRUBIN, TOTAL 0.6 mg/dL (0.0-1.0) ALKALINE PHOSPHATASE 89 U/L (46-116) AST (SGOT) 31 U/L (15-37) ALT (SGPT) 55 U/L (12-78) MAGNESIUM 2.0 mg/dL (1.8-2.4) CPK 92 U/L (24-260) TROPONIN I <0.05 ng/mL (0.00-1.5) TROPONIN REFERENCE RANGE:<0.1 NEGATIVE0.1-1.5 INDETERMINANT>1.5 POSITIVE . Pulse Oximetry: 04/26/2017 07:55 O2 saturation: 97%. (FIO2 - room air). Interpretation: normal. PROGRESS AND PROCEDURES Course of Care: D/w , who gave most of the history: given the pt's limited memory and comprehension, it is very difficult to know what may have happened, and what exactly she was feeling at the time. Pt was worked up for her episode, and work-up was negative. Patient and spouse counseled in person regarding the patient's stable condition, test results, diagnosis and need for follow-up. Concerns were addressed. Old medical records reviewed. Disposition: Discharged. Condition: stable. CLINICAL IMPRESSION Chest pain characterized as "discomfort" .12 lead EKG performed. Hypokalemia INSTRUCTIONS Warnings: GENERAL WARNINGS: Return or contact your physician immediately if your condition worsens or changes unexpectedly, if not improving as expected, or if other problems arise. Your Current Medications: CONTINUE TAKING THE FOLLOWING MEDICATIONS: AmLODIPine Besylate Oral : 5 mg daily. BuPROPion HCl Oral : 150 mg daily. HydrOXYzine HCl Oral : 50 mg 4x a day, prn. Memantine HCl Oral : Tablet 10 mg, 1 tablet 2x daily. Namenda Oral. Premarin Oral. SEROquel Oral. Tamsulosin HCl Oral : Capsule 0.4 mg, 1 capsule daily. Triamterene-HCTZ Oral : Tablet 37.5-25 mg, 1 tablet daily. Wellbutrin Oral. Prescription Medications: K-Dur 20 mEq: take 1 orally every 24 hours. Dispense fifteen (15). No refills. Substitution is permissible. Follow-up: Follow up with your doctor. Call for the next available appointment. Reason for referral: Follow up ER visit for chest discomfort and low potassium. Understanding of the discharge instructions verbalized by patient and family. (Electronically signed by Mare Paz MD 05/08/2017 13:03)
--- NOTE | 2017-04-26 09:15 | ED ORDER SUMMARY ---
..... Patient: LEE DUVAL OrderSheet [facility] VisitID: [id number] [place] [address] 57y, F Registration Date/Time: 04/26/2017 ORDER SHEET Weight: 78.0 kg (measured) Allergies: None GENERAL ORDERS: Chest 1V Urgent (08:19 04/26/2017 Dax R.N. verbal order read back to Moon CANTU) (Ack 8:25 KHoerner) (8:30 KHoerner) Sweet Potato Disintegrator (Continuous) (Chest pain) (08:20 04/26/2017 Dax R.N. verbal order read back to Moon CANTU) (8:20 Fideliaelli R.N.) Cardiac Panel Stat (08:20 04/26/2017 Dax R.N. verbal order read back to Moon CANTU) (8:20 Fideliaelli R.N.) Pulse oximeter (08:20 04/26/2017 Dax R.N. verbal order read back to Moon CANTU) (8:20 JRomanelli R.N.) EKG - ER Stat (08:20 04/26/2017 Dax R.N. verbal order read back to Moon CANTU) (8:21 JRomanelli R.N.) MEDICATION ORDERS: KCl PO 40 meq (NOW) (09:12 04/26/2017 Moon CANTU) (10:11 omanelli R.N.) IV FLUIDS: IV Saline Lock (08:17 04/26/2017 Dax R.N. verbal order read back to Moon CANTU) (8:23 omanelli R.N.) IV Saline Lock (08:20 04/26/2017 Dax R.N. verbal order read back to Moon CANTU) (8:24 Fideliaelli R.N.) ORDER SHEET NOTES: [Electronically signed by Romero Mireles R.N. (11:51 04/26/2017)] [Electronically signed by Mare Paz MD (13:03 05/08/2017)] [Electronically locked/signed by Romero Mireles R.N. (11:51 04/26/2017)]
--- NOTE | 2017-04-26 09:15 | ED NURSING NOTES ---
Clinical Report - Nurses [facility] [address] [place] [address] 04/26/2017 7:50 Patient: LEE DUVAL TRIAGE Triage time 07:50 Apr 26 2017. Acuity: LEVEL 3. Chief Complaint: CHEST PAIN. Alert. KATHY COMA SCORE: Kathy Coma Scale: 14- eyes open spontaneously (4); best verbal response- disoriented (4); best motor response- obeys commands (6). --08:10 Romero Mireles R.N. 07:55 04/26/17. BP: 178/103. HR: 119. RR: 16. O2 saturation: 97%. Temp: 99.5 F. Pain level now: 0/10. --08:10 Romero Mireles R.N. Weight: 78 kg measured. Height/Length: 62 inches Estimated. BMI: 31.5. --07:59 Romero Mireles R.N. Medications Namenda Oral. Premarin Oral. SEROquel Oral. Triamterene-HCTZ Oral (Tablet 37.5-25 mg) 1 tablet, daily. Wellbutrin Oral. --08:03 Romero Mireles R.N. Tamsulosin HCl Oral (Capsule 0.4 mg) 1 capsule, daily. --08:04 Romero Mireles R.N. HydrOXYzine HCl Oral 50 mg, 4x a day as needed. --08:05 Romero Mireles R.N. AmLODIPine Besylate Oral 5 mg, daily. --08:07 Romero Mireles R.N. Memantine HCl Oral (Tablet 10 mg) 1 tablet, 2x daily. --08:07 Romero Mireles R.N. BuPROPion HCl Oral 150 mg, daily. --08:08 Romero Mireles R.N. Allergies None. --08:03 Romero Mireles R.N. History Arrived by private vehicle. Historian: spouse and patient. Accompanied by spouse. ( Chest Pain starting about 1 hour ago, but none now.). This started just prior to arrival and today. Onset. (about 1 hour ago). Treatment COMPUTER PROGRAMMER CHIEF: None. PAST MEDICAL HX: Immunizations: up-to-date. SOCIAL HX: Former smoker, end date 1980. No alcohol use or drug use. No infectious disease exposure. ABUSE ASSESSMENT: No report of abuse. FALL RISK ASSESSMENT: Fall risk assessment completed. No fall risk identified. NUTRITIONAL RISK ASSESSMENT: The nutritional risk assessment revealed no deficiencies. FUNCTIONAL ASSESSMENT: Functional assessment: no impairments noted. LEARNING NEEDS ASSESSMENT: The learning needs assessment revealed no barriers. SKIN INTEGRITY ASSESSMENT: Skin integrity risk assessment completed. No skin integrity risk identified. --08:10 Romero Mireles R.N. PROBLEMS: Hypertension. Dementia. --08:00 Romero Mireles R.N. Murmur. --08:08 Romero Mireles R.N. ADDITIONAL SURGERIES: Cholecystectomy. . --08:00 Romero Mireles R.N. Interventions ID band on patient. To treatment room. --08:10 Romero Mireles R.N. PHYSICAL ASSESSMENT To room via wheelchair. GENERAL / NEURO / PSYCH: Alert. The patient is disoriented to time and situation. HEENT: Mucous membranes are pink. RESPIRATORY: Respirations not labored. Breath sounds within normal limits. CVS: Cardiac rhythm: sinus tachycardia. Heart sounds within normal limits. Pulses within normal limits. Capillary refill less than 2 seconds. GI / : Abdomen soft and nontender. EXTREMITIES: No lower extremity edema. SKIN: Skin is warm and dry. Normal skin turgor. --08:16 Romero Mireles R.N. NURSING PROGRESS NOTES monitoring engineer, pulse oximeter and NIBP monitor placed on patient; child monitor- Lead II and V1; monitor alarms on. Patient gowned. Reassurance given. Patient identifiers checked. Call light placed in reach. Side rails up x 1. Bed placed in lowest position. Brakes of bed on. Patient ready for evaluation- chart flagged and ED physician notified. --08:17 Romero Mireles R.N. 08:00 04/26/2017 Site #1 started via IV in the right antecubital space with an 20g angiocath; one attempt. Saline lock flushed with 10 mL saline. --08:23 Romero Mireles R.N. 08:02 04/26/2017 Site #2 started via IV in the left forearm with an 20g angiocath, with aseptic technique and good blood return; one attempt. Blood drawn: rainbow set. Labeled in the presence of the patient and sent to the lab. Saline lock flushed with 10 mL saline (start by YESENIA Xiong). --08:24 Romero Mireles R.N. EKG time: (758). EKG was ordered, performed by a tech and shown to the ED physician. --08:47 Niki Adames 10:01 04/26/2017 KCL (Potassium Chloride ER) PO Tablets 40 meq given. Allergies verified and confirmed 5 rights. --10:11 Romero Mireles R.N. 08:30 04/26/17. BP: 139/80. HR: 103. RR: 16. O2 saturation: 97% on room air. Pain level now: 0/10. --10:31 Romero Mireles R.N. 09:00 04/26/17. BP: 145/84. HR: 96. RR: 15. O2 saturation: 97% on room air. Pain level now: 0/10. --10:33 Romero Mireles R.N. DISPOSITION / DISCHARGE 09:55 04/26/2017 Site #1 removed upon discharge. Catheter intact. Manual pressure and pressure dressing applied. --10:20 Patricia Rahman R.N. 09:55 04/26/2017 Site #2 removed upon discharge. Catheter intact. Manual pressure and pressure dressing applied. --10:21 Patricia Rahman R.N. 09:55 04/26/17. BP: 145/86. HR: 106. RR: 16. O2 saturation: 97% on room air. Temp: 98.3 F. Pain level now: 0/10. --10:35 Romero Mireles R.N. Departure time: 1000. --11:40 Romero Mireles R.N. 10:00. Condition at departure: improved. No learning barriers present. Discharge instructions provided and reviewed with the patient. Reviewed medication(s) (prescription given to spouse). Reviewed referral to family practice. Patient verbalized understanding. Written instructions provided in Somali. The patient was discharged by the physician. She was discharged home and accompanied by spouse. She left the Emergency Department ambulatory and via private vehicle. Spouse driving. --11:44 Romero Mireles R.N. Locked/Released at 04/26/2017 11:51 by Romero Mireles R.N.
--- NOTE | 2017-04-26 09:15 | ED NURSING NOTES ---
Clinical Report - Nurses [facility] [address] [place] [address] 04/26/2017 7:50 Patient: LEE DUVAL TRIAGE Triage time 07:50 Apr 26 2017. Acuity: LEVEL 3. Chief Complaint: CHEST PAIN. Alert. KATHY COMA SCORE: Kathy Coma Scale: 14- eyes open spontaneously (4); best verbal response- disoriented (4); best motor response- obeys commands (6). --08:10 Romero Mireles R.N. 07:55 04/26/17. BP: 178/103. HR: 119. RR: 16. O2 saturation: 97%. Temp: 99.5 F. Pain level now: 0/10. --08:10 Romero Mireles R.N. Weight: 78 kg measured. Height/Length: 62 inches Estimated. BMI: 31.5. --07:59 Romero Mireles R.N. Medications Namenda Oral. Premarin Oral. SEROquel Oral. Triamterene-HCTZ Oral (Tablet 37.5-25 mg) 1 tablet, daily. Wellbutrin Oral. --08:03 Romero Mireles R.N. Tamsulosin HCl Oral (Capsule 0.4 mg) 1 capsule, daily. --08:04 Romero Mireles R.N. HydrOXYzine HCl Oral 50 mg, 4x a day as needed. --08:05 Romero Mireles R.N. AmLODIPine Besylate Oral 5 mg, daily. --08:07 Romero Mireles R.N. Memantine HCl Oral (Tablet 10 mg) 1 tablet, 2x daily. --08:07 Romero Mireles R.N. BuPROPion HCl Oral 150 mg, daily. --08:08 Romero Mireles R.N. Allergies None. --08:03 Romero Mireles R.N. History Arrived by private vehicle. Historian: spouse and patient. Accompanied by spouse. ( Chest Pain starting about 1 hour ago, but none now.). This started just prior to arrival and today. Onset. (about 1 hour ago). Treatment MANAGER OF IT: None. PAST MEDICAL HX: Immunizations: up-to-date. SOCIAL HX: Former smoker, end date 1980. No alcohol use or drug use. No infectious disease exposure. ABUSE ASSESSMENT: No report of abuse. FALL RISK ASSESSMENT: Fall risk assessment completed. No fall risk identified. NUTRITIONAL RISK ASSESSMENT: The nutritional risk assessment revealed no deficiencies. FUNCTIONAL ASSESSMENT: Functional assessment: no impairments noted. LEARNING NEEDS ASSESSMENT: The learning needs assessment revealed no barriers. SKIN INTEGRITY ASSESSMENT: Skin integrity risk assessment completed. No skin integrity risk identified. --08:10 Romero Mireles R.N. PROBLEMS: Hypertension. Dementia. --08:00 Romero Mireles R.N. Murmur. --08:08 Romero Mireles R.N. ADDITIONAL SURGERIES: Cholecystectomy. . --08:00 Romero Mireles R.N. Interventions ID band on patient. To treatment room. --08:10 Romero Mireles R.N. PHYSICAL ASSESSMENT To room via wheelchair. GENERAL / NEURO / PSYCH: Alert. The patient is disoriented to time and situation. HEENT: Mucous membranes are pink. RESPIRATORY: Respirations not labored. Breath sounds within normal limits. CVS: Cardiac rhythm: sinus tachycardia. Heart sounds within normal limits. Pulses within normal limits. Capillary refill less than 2 seconds. GI / : Abdomen soft and nontender. EXTREMITIES: No lower extremity edema. SKIN: Skin is warm and dry. Normal skin turgor. --08:16 Romero Mireles R.N. NURSING PROGRESS NOTES monitor car operator, pulse oximeter and NIBP monitor placed on patient; monitor technician- Lead II and V1; monitor alarms on. Patient gowned. Reassurance given. Patient identifiers checked. Call light placed in reach. Side rails up x 1. Bed placed in lowest position. Brakes of bed on. Patient ready for evaluation- chart flagged and ED physician notified. --08:17 Romero Mireles R.N. 08:00 04/26/2017 Site #1 started via IV in the right antecubital space with an 20g angiocath; one attempt. Saline lock flushed with 10 mL saline. --08:23 Romero Mireles R.N. 08:02 04/26/2017 Site #2 started via IV in the left forearm with an 20g angiocath, with aseptic technique and good blood return; one attempt. Blood drawn: rainbow set. Labeled in the presence of the patient and sent to the lab. Saline lock flushed with 10 mL saline (start by YESENIA Xiong). --08:24 Romero Mireles R.N. EKG time: (758). EKG was ordered, performed by a tech and shown to the ED physician. --08:47 Niki Adames 10:01 04/26/2017 KCL (Potassium Chloride ER) PO Tablets 40 meq given. Allergies verified and confirmed 5 rights. --10:11 Romero Mireles R.N. 08:30 04/26/17. BP: 139/80. HR: 103. RR: 16. O2 saturation: 97% on room air. Pain level now: 0/10. --10:31 Romero Mireles R.N. 09:00 04/26/17. BP: 145/84. HR: 96. RR: 15. O2 saturation: 97% on room air. Pain level now: 0/10. --10:33 Romero Mireles R.N. DISPOSITION / DISCHARGE 09:55 04/26/2017 Site #1 removed upon discharge. Catheter intact. Manual pressure and pressure dressing applied. --10:20 Patricia Rahman R.N. 09:55 04/26/2017 Site #2 removed upon discharge. Catheter intact. Manual pressure and pressure dressing applied. --10:21 Patricia Rahman R.N. 09:55 04/26/17. BP: 145/86. HR: 106. RR: 16. O2 saturation: 97% on room air. Temp: 98.3 F. Pain level now: 0/10. --10:35 Romero Mireles R.N. Departure time: 1000. --11:40 Romero Mireles R.N. 10:00. Condition at departure: improved. No learning barriers present. Discharge instructions provided and reviewed with the patient. Reviewed medication(s) (prescription given to spouse). Reviewed referral to family practice. Patient verbalized understanding. Written instructions provided in Swiss. The patient was discharged by the physician. She was discharged home and accompanied by spouse. She left the Emergency Department ambulatory and via private vehicle. Spouse driving. --11:44 Romero Mireles R.N. Locked/Released at 04/26/2017 11:51 by Romero Mireles R.N.
--- NOTE | 2017-04-26 09:15 | ED ORDER SUMMARY ---
..... Patient: LEE DUVAL OrderSheet [facility] VisitID: [id number] [place] [address] 57y, F Registration Date/Time: 04/26/2017 ORDER SHEET Weight: 78.0 kg (measured) Allergies: None GENERAL ORDERS: Chest 1V Urgent (08:19 04/26/2017 Dax R.N. verbal order read back to Moon CANTU) (Ack 8:25 KHoerner) (8:30 KHoerner) Bow String Maker (Continuous) (Chest pain) (08:20 04/26/2017 Dax R.N. verbal order read back to Moon CANTU) (8:20 Fideliaelli R.N.) Cardiac Panel Stat (08:20 04/26/2017 Dax R.N. verbal order read back to Moon CANTU) (8:20 Fideliaelli R.N.) Pulse oximeter (08:20 04/26/2017 Dax R.N. verbal order read back to Moon CANTU) (8:20 JRomanelli R.N.) EKG - ER Stat (08:20 04/26/2017 Dax R.N. verbal order read back to Moon CANTU) (8:21 JRomanelli R.N.) MEDICATION ORDERS: KCl PO 40 meq (NOW) (09:12 04/26/2017 Moon CANTU) (10:11 omanelli R.N.) IV FLUIDS: IV Saline Lock (08:17 04/26/2017 Dax R.N. verbal order read back to Moon CANTU) (8:23 omanelli R.N.) IV Saline Lock (08:20 04/26/2017 Dax R.N. verbal order read back to Moon CANTU) (8:24 Fideliaelli R.N.) ORDER SHEET NOTES: [Electronically signed by Romero Mireles R.N. (11:51 04/26/2017)] [Electronically signed by Mare Paz MD (13:03 05/08/2017)] [Electronically locked/signed by Romero Mireles R.N. (11:51 04/26/2017)]
--- NOTE | 2017-05-08 13:03 | ED DISCHARGE INSTRUCTIONS ---
Patient: LEE DUVAL General Instructions [facility] VisitID: [id number] [place] [address] 57y, F Registration Date/Time: 04/26/2017 Chest pain characterized as "discomfort" .12 lead EKG performed. Hypokalemia INSTRUCTIONS Warnings: GENERAL WARNINGS: Return or contact your physician immediately if your condition worsens or changes unexpectedly, if not improving as expected, or if other problems arise. Your Current Medications: CONTINUE TAKING THE FOLLOWING MEDICATIONS: AmLODIPine Besylate Oral : 5 mg daily. BuPROPion HCl Oral : 150 mg daily. HydrOXYzine HCl Oral : 50 mg 4x a day, prn. Memantine HCl Oral : Tablet 10 mg, 1 tablet 2x daily. Namenda Oral. Premarin Oral. SEROquel Oral. Tamsulosin HCl Oral : Capsule 0.4 mg, 1 capsule daily. Triamterene-HCTZ Oral : Tablet 37.5-25 mg, 1 tablet daily. Wellbutrin Oral. Prescription Medications: K-Dur 20 mEq: take 1 orally every 24 hours. Dispense fifteen (15). No refills. Substitution is permissible. Follow-up: Follow up with your doctor. Call for the next available appointment. Reason for referral: Follow up ER visit for chest discomfort and low potassium. Understanding of the discharge instructions verbalized by patient and family. ADDITIONAL INFORMATION Chest Pain, Uncertain Cause Chest pain can happen for a number of reasons. Sometimes the cause can not be determined. If yourcondition does not seem serious, and your pain does not appear to be coming from your heart, your doctor may recommend watching it closely. Sometimes the signs of a serious problem take more time to appear. Therefore, watch for the warning signs listed below. Home care After your visit, follow these recommendations: Rest today and avoid strenuous activity. Take any prescribed medicine as directed. Follow-up care Follow up with your doctor or this facility as instructed or if you do not start to feel better within 24 hours. Call 911 Get immediate medical attention if any of the following occur: A change in the type of pain: if it feels different, becomes more severe, lasts longer, or begins to spread into your shoulder, arm, neck, jaw or back Shortness of breath or increased pain with breathing Weakness, dizziness, or fainting Rapid heart beat Get prompt medical attention Call your doctor right away if any of the following occur: Cough with dark colored sputum (phlegm) or blood Fever of 100.4F(38C) or higher, or as directed by your health care provider Swelling, pain or redness in one leg Hypokalemia Hypokalemia means a low level of potassium in the blood. This most often occurs in patients who take diuretics (water pills). It can also occur due to severe vomiting or diarrhea. A mild case usually causes no symptoms. It is only found with blood testing. More severe potassium loss causes generalized weakness, muscle or abdominal cramping, heart palpitations (rapid or irregular heartbeats) and low blood pressure. Home Care: 1) Take any potassium supplements prescribed. 2) Eat foods rich in potassium. The highest amount is found in artichoke, baked potatoes, spinach, cantaloupe, honeydew melon, cod, halibut, salmon, and scallops. White, red, or augustin beans are also very good sources. A modest amount is found in orange juice, bananas, carrots, and tomato juice. 3) Certain types of diuretics (water pills), such as Lasix (furosemide), require that you take potassium supplements for as long as you take the diuretic pills. If you are taking a diuretic, discuss the need for potassium supplements with your doctor. Follow Up with your doctor for a repeat blood test within the next week or as advised by our staff. Get Prompt Medical Attention if any of the following occur: -- Increased weakness -- Feeling dizzy -- Irregular heartbeat, extra beats or very fast heart rate -- Fainting spell You have been given the following additional information: Chest Pain, Uncertain Cause Hypokalemia (Electronically signed by Mare Paz MD 05/08/2017 13:03)
--- NOTE | 2017-05-08 13:03 | ED MAR SUMMARY ---
..... Medication Administration Record [facility] [address] [place] [address] Patient: LEE DUVAL Visit ID: [id number] 57y, F Weight: 78.0 kg Height/Length: 62 in BMI: 31.5 ALLERGIES: None Given 10:01 04/26/2017 Romero Mireles R.N. Medication Administered: KCL [PO] (POTASSIUM CHLORIDE ER), Dose: 40 meq Tablets PO. Medication Ordered: KCl PO 40 meq (NOW).
--- NOTE | 2017-05-08 13:03 | ED MAR SUMMARY ---
..... Medication Administration Record [facility] [address] [place] [address] Patient: LEE DUVAL Visit ID: [id number] 57y, F Weight: 78.0 kg Height/Length: 62 in BMI: 31.5 ALLERGIES: None Given 10:01 04/26/2017 Romero Mireles R.N. Medication Administered: KCL [PO] (POTASSIUM CHLORIDE ER), Dose: 40 meq Tablets PO. Medication Ordered: KCl PO 40 meq (NOW).
--- NOTE | 2017-05-08 13:03 | ED MED RECONCILIATION SUMMARY ---
Patient: LEE DUVAL Medication Reconciliation Report [facility] VisitID: [id number] [place] [address] 57y, F Registration Date/Time: 04/26/2017 Weight: 78.0 kg Height/Length: 62 in. BMI: 31.5 ALLERGIES: None The patient's Home Medications are listed below: CONTINUE TAKING THE FOLLOWING MEDICATIONS: AmLODIPine Besylate Oral 5 mg, daily BuPROPion HCl Oral 150 mg, daily HydrOXYzine HCl Oral 50 mg, 4x a day Memantine HCl Oral (10 mg) 1 tablet, 2x daily Namenda Oral Premarin Oral SEROquel Oral Tamsulosin HCl Oral (0.4 mg) 1 capsule, daily Triamterene-HCTZ Oral (37.5-25 mg) 1 tablet, daily Wellbutrin Oral The source(s) of the original Home Medication information: Not obtained. The following Medications were given to the patient in the Emergency Department: KCL [PO] PO 40 meq, administered: 04/26/2017 10:01:00 AM The following Medications were prescribed to the patient: K-Dur 20 mEq: take 1 orally every 24 hours. Dispense fifteen (15). No refills. Substitution is permissible. -- Mare Paz MD
--- NOTE | 2017-05-08 13:03 | ED MED RECONCILIATION SUMMARY ---
Patient: LEE DUVAL Medication Reconciliation Report [facility] VisitID: [id number] [place] [address] 57y, F Registration Date/Time: 04/26/2017 Weight: 78.0 kg Height/Length: 62 in. BMI: 31.5 ALLERGIES: None The patient's Home Medications are listed below: CONTINUE TAKING THE FOLLOWING MEDICATIONS: AmLODIPine Besylate Oral 5 mg, daily BuPROPion HCl Oral 150 mg, daily HydrOXYzine HCl Oral 50 mg, 4x a day Memantine HCl Oral (10 mg) 1 tablet, 2x daily Namenda Oral Premarin Oral SEROquel Oral Tamsulosin HCl Oral (0.4 mg) 1 capsule, daily Triamterene-HCTZ Oral (37.5-25 mg) 1 tablet, daily Wellbutrin Oral The source(s) of the original Home Medication information: Not obtained. The following Medications were given to the patient in the Emergency Department: KCL [PO] PO 40 meq, administered: 04/26/2017 10:01:00 AM The following Medications were prescribed to the patient: K-Dur 20 mEq: take 1 orally every 24 hours. Dispense fifteen (15). No refills. Substitution is permissible. -- Mare Paz MD
== END 2017-04-26 10:00 | disposition home or self-care (01) ==
LOC: ED SRH 07:45
DX: R07.9 Chest pain, unspecified (principal); E87.6 Hypokalemia; I10 Essential (primary) hypertension; Z79.899 Other long term (current) drug therapy
CPT/HCPCS: 90100; 90616; 92610; 92720; 95059